=== PATIENT | female | born 1955 | race Caucasian/White ===

== ENCOUNTER → 2017-05-23 | Outpatient (CLI) | payer OTHER ==
[~2017-05-23] MED LIST: ARTHIRITIS MED; Desyrel PO; FLEXERIL5 MG PO; Flexeril PO; Percocet 5/325,Endoc PO; Xarelto PO; celeBREX PO
== END | disposition home or self-care (01) ==
LOC: NUC 10:39
DX: M46.92 Unspecified inflammatory spondylopathy, cervical region (principal); M46.96 Unspecified inflammatory spondylopathy, lumbar region; M19.071 Primary osteoarthritis, right ankle and foot; M19.072 Primary osteoarthritis, left ankle and foot; Z96.653 Presence of artificial knee joint, bilateral
CPT/HCPCS: 78315; A9503